=== PATIENT | female | born 1995 | race Caucasian/White ===

== ENCOUNTER 2016-10-23 09:40 | Inpatient (IN) | payer BC ==
[2016-10-23] MEDS ORDERED: LR 500 ML IV PRN (09:47)
--- NOTE | 2016-10-23 09:50 | HISTPHYS ---
- HISTORY OF PRESENT ILLNESS Age: 20 Estimated Due Date: 11/14/16 Gestational Age: 36 : 1 Para: 0 Patient Presents to:: Labor & Delivery Presents for:: Leaking Fluid Current : No Complications, GBS - - REVIEW OF SYSTEMS Reports/Denies: Denies: Complaints Pain: Reports: None - ALLERGIES Allergies Allergy/AdvReac Type Severity Reaction Status Date / Time cefdinir [From Omnicef] Allergy Rash-Genera Verified 04/03/13 07:42 lized Cephalosporins Allergy Rash-Genera Verified 04/03/13 07:42 lized - PAST MEDICAL HISTORY Reports: No Significant History - PAST SURGICAL HISTORY Reports: Cholecystectomy - PHYSICAL EXAM Vital Signs:: Temperature: () HR: () RR: () BP: () Pulse Ox: () GENERAL: Alert, Oriented, No Acute Distress HEENT: Normal CARDOVASCULAR/CHEST: Normal RESPIRATORY: Normal - CTA ABDOMEN: Gravid, Obese Fundal Height (cm): 38 GENITOURINARY: Normal. negative: Lesions MUSCULOSKELETAL: Normal EXTERMITIES: Moves All Extremeties. negative: Edema Dilation (cm): 1 Effacement (%): 90 Station: -2 Heart Rate: 145 Contractions: Absent Membranes: SROM Amniotic Fluid: Clear - ASSESSMENT (ACTIVE PROBLEMS) (1) with 36 to 37 weeks completed gestation Acute [id number] - (2) Active labor Acute [id number] - - PLAN Admit Other Plan: 20 yo G1 at 36.6 weeks presents to l and d with srom. Routine care without any complications. Will admit, augment with pitocin secondary to no contractions and ruptured. Plan of care discussed.
[2016-10-23] MEDS ORDERED: ONDANSETRON HCL 4 MG/2 ML VIAL IV ONE (10:00)
[2016-10-23] MEDS ORDERED: BUPIVACAINE 0.75%/DEXTROSE 8.25% AMPULE EPI ONE (10:00)
[2016-10-23] MEDS ORDERED: OXYTOCIN 1,000 ML IV SCH (10:00)
[2016-10-23 10:07] VITALS: BMI 40.4
[2016-10-23] MEDS ORDERED: LIDOCAINE 1% 30 ML VIAL (PRESERVATIVE FREE) ONE (10:15)
[2016-10-23 10:26] LABS: AUTOMATED BASOPHIL 0.7 % (0-2); AUTOMATED EOSINOPHIL 1.8 % (0-5); AUTOMATED LYMPH 21.3 % (17-44); AUTOMATED MONOCYTE 7.9 % (3-10); AUTOMATED NEUTROPHIL 68.3 % (45-76); MPV 7.7 fL (7.4-10.4)
[2016-10-23] MEDS: LR 1,000 ML IV SCH ×2 (10:45→18:17)
[2016-10-23] MEDS ORDERED: Vaccine Screening Complete SCH (11:00)
[2016-10-23] MEDS: BUTORPHANOL 1 MG/ML VIAL IV PRN ×4 (15:13→20:36)
--- NOTE | 2016-10-23 15:22 | OBGYNPROG ---
- Exam Vital Signs: Temperature: 97.9 F (10/23/16 09:53) HR: 109 (10/23/16 09:53) RR: 16 (10/23/16 09:53) BP: 138/76 (10/23/16 09:53) Pulse Ox: () Heart Rate: 122 Moderate Variability Contraction Pattern: Regular Dilation (cm): 1.5 Effacement (%): 90 Station: -3 Amniotic Fluid: Clear - Plan Continue Present Management
--- NOTE | 2016-10-23 20:33 | OBGYNPROG ---
- Exam Vital Signs: Temperature: 97.9 F (10/23/16 09:53) HR: 109 (10/23/16 09:53) RR: 16 (10/23/16 09:53) BP: 138/76 (10/23/16 09:53) Pulse Ox: () Heart Rate: 135 Moderate Variability Contraction Pattern: Regular Dilation (cm): 3 Effacement (%): 100 Station: -2 - Plan Continue Present Management Discussed with patient indications for section, discussed minimal change throughout the day, now with srom x 12 hours. Will follow closely. FHR reassuring, will continue pitocin.
[2016-10-23] MEDS ORDERED: LR 1,500 ML IV ONE (21:35)
--- NOTE | 2016-10-23 21:39 | OBGYNPROG ---
- Exam Vital Signs: Temperature: 97.9 F (10/23/16 09:53) HR: 109 (10/23/16 09:53) RR: 16 (10/23/16 09:53) BP: 138/76 (10/23/16 09:53) Pulse Ox: () Heart Rate: 134 Reactive Contraction Pattern: Regular Dilation (cm): 3 Effacement (%): 100 Station: -2 - Plan Discussed with patient no change, recommend proceeding with ltcs. Risks reviewed , anesthesia and peds notified.
[2016-10-23] MEDS ORDERED: FENTANYL 100 MCG/2 ML VIAL IV PRN ×2 (21:58)
[2016-10-23] MEDS ORDERED: hydrALAZINE 20 MG/ML VIAL IV PRN (21:58)
[2016-10-23] MEDS ORDERED: ONDANSETRON HCL 4 MG/2 ML VIAL IV PRN (21:58)
[2016-10-23] MEDS ORDERED: ONDANSETRON HCL 4 MG ODT TAB PO PRN (21:58)
[2016-10-23] MEDS ORDERED: HYDROmorphone 1 MG INJECTION IV PRN ×2 (21:58)
[2016-10-23] MEDS ORDERED: MEPERIDINE 25 MG/ML TUBEX IV PRN (21:58)
[2016-10-23] MEDS ORDERED: PROMETHAZINE 25 MG/ML VIAL IV PRN ×3 (21:58→23:23)
[2016-10-23] MEDS ORDERED: LABETALOL 20 MG/4 ML SYRINGE IV PRN (21:58)
[2016-10-23] MEDS ORDERED: LR 1,000 ML IV SCH ×2 (22:00)
[2016-10-23] MEDS ORDERED: GENTAMICIN 160 MG in NS 100 ML IV ONE (22:00)
[2016-10-23] MEDS ORDERED: Clindamycin 900 mg/D5W 50 ml 900 MG/50 ML IVB IV ONE (22:00)
--- NOTE | 2016-10-23 22:00 | HIM.ANES ---
Anesthesia Evaluation & Plan - Focused Review of Systems Cardiac History: No: Hx Cardiac Disorders HEENT: Yes: Hx Ear Problem (EUSTACHIAN TUBE DYSFUNCTION), Other HEENT Problems Hx Other HEENT Problems: TONSILLITIS; SINUSITIS; URI Respiratory: Yes: Hx Asthma Gastrointestinal: Yes: Hx Gastroesophageal Reflux Disease, Hx Gastrointestinal Disorders Neurological/Musculoskeletal: Yes: Hx Migraine, Hx Neurological Disorders Psychological: Yes Hx Depression (2011), Yes Hx Mental/Emotional Disorders HX Other Psyco/Soc Problems: OPPOSITIONAL DEFIANT DISORDER OF CHILDHOOD Blood/Autoimmune: No: Hx Blood Transfusions, Hx Anemia, Hx AIDS, Hx Sickle Cell Disease Smoking Status: Never smoker Past Social History: Denies: Alcohol Use Hx Stress Test (date): No Hx Echocardiogram (date): No Hx Chest Xray (date): No - Focused Physical Exam NPO since: 10/23/16 0530 Mallampati: Class III Thyromental Distance: Greater than 3 Cardiovascular/Chest: Normal Respiratory: Lungs clear Any problems with anesthesia, including nausea and vomiting?: No Any relatives with a history of Malignant Hyperthermia?: No Beta Fabiola given (if appropriate): No Other: Problem List Problem Status Onset Active labor Acute with 36 to 37 weeks completed gestation Acute CBC/BMP/Other 10/23/16 10:10 Allergies Allergy/AdvReac Type Severity Reaction Status Date / Time cefdinir [From Omnicef] Allergy Rash-Genera Verified 10/23/16 09:53 lized Cephalosporins Allergy Rash-Genera Verified 10/23/16 09:53 lized Home Medications Medication Instructions Recorded Last Taken Type Vits W-Ca,Fe,FA(<1Mg) 1 each PO DIR 10/23/16 10/22/16 10:00 History [] Height and Weight Patient's height 5 ft 1 in Patient's weight 232 lb BMI 40.4 Vital Signs Temperature 98.3 F 10/23/16 21:59 Pulse Rate 83 10/23/16 21:59 Respiratory Rate 20 10/23/16 21:59 Blood Pressure 136/85 10/23/16 21:59 Pulse Oxygen Saturation 95 10/23/16 21:59 - Anesthetic Plan Anesthesia Type: Spinal ASA Class: 3, E -: I have examined this patient and reviewed the medical record. The patient has been assessed prior to anesthesia. Risks and benefits of anesthesia and anesthetic technique options have been discussed and all questions answered. The patient accepts the risk and desires me to proceed with the planned anesthetic.
--- NOTE | 2016-10-23 22:00 | SC.ANESPOS ---
Post-Anesthesia Note LOC: [place] [facility] Calling Post-Anesthesia Assessment: Awake, Returned to Baseline, Hemodynamically Stable , Pain Control Adequate Phase I & II Recovery Complete: Yes Apparent Anesthesia Complication: No : N - Vital Signs Blood Pressure: 136/85 Pulse: 83 Resp Rate: 20 O2 Sat: 95 Temp: 98.3 F
[2016-10-23] MEDS ORDERED: LANOLIN OINTMENT 0.25 OZ TUBE TOP PRN (23:23)
[2016-10-23] MEDS ORDERED: ZOLPIDEM TARTRATE 5 MG TAB PO PRN (23:23)
[2016-10-23] MEDS ORDERED: OXYTOCIN 1,000 ML IV ONE (23:23)
[2016-10-23] MEDS ORDERED: HYDROmorphone 50 ML IV PRN (23:23)
[2016-10-23] MEDS ORDERED: OXYCODONE HCL 5 MG TABLET PO PRN (23:23)
[2016-10-23] MEDS ORDERED: SODIUM CHLORIDE 0.9% 3 ML FLUSH FLUSH PRN (23:23)
--- NOTE | 2016-10-23 23:25 | HIMOPRPT ---
DATE OF PROCEDURE: DATE OF PROCEDURE: 10/23/16 PREOPERATIVE DIAGNOSIS: 1. Intrauterine at 36.6 weeks 2. Failure to progress POSTOPERATIVE DIAGNOSIS: 1. Intrauterine at 36.6 weeks. 2. Failure to progress PROCEDURE: Primary low transverse via Pfannenstiel incision. SURGEON: Irlanda Nunez MD. ANESTHESIA: [spinal] FINDINGS: Vigorous [male] infant, [6] pounds [13] ounces with Apgars of [8] and [9]. COMPLICATIONS: None. ESTIMATED BLOOD LOSS: 400 mL. URINE OUTPUT: [150] mL of clear urine. PROCEDURE IN DETAIL: The patient was taken to the operating room where anesthesia was adequate at the time of skin check. At this time, a Pfannenstiel incision was made with scalpel carried down to the fascia. The fascia was nicked in midline and the incision extended laterally with Rosado scissors. The fascia was elevated up, dissected off rectus muscles. Rectus muscles were midline. Peritoneum was identified and entered. Peritoneal incision was extended superiorly and inferiorly with good visualization of bladder. Bladder flap was created with blunt and sharp dissection. The lower uterine segment was incised in transverse fashion with scalpel and extended bluntly. The 's head was delivered atraumatically. The nose and mouth were suctioned with bulb suction. Cord clamped and cut and infant handed off to awaiting tool die maker. Placenta was removed. The uterus was exteriorized and cleared of all clots. The uterine incision was closed with #1 chromic and second chromic was used for hemostasis. The uterus was returned to the abdomen and hemostasis was verified. Clots were removed from the gutters. The fascia was closed with 0 PDS. Subcuticular fat was irrigated with saline. Fat was reapproximated with 0 plain gut suture. Skin was closed with 4-0 monocryl in subcuticular fashion. Dermabond was applied to the skin site. Sponge, laps, and needle counts correct x2. The patient tolerated well.
--- NOTE | 2016-10-23 23:26 | OBDELNOTE ---
Delivery Note - Problem/Diagnosis (1) with 36 to 37 weeks completed gestation Status: Acute (2) Active labor Status: Acute (3) delivery delivered Status: Acute (4) Single live Status: Acute (5) Failure to progress in labor Status: Acute - Admitting Diagnosis Reason for Visit: Leaking Fluid Admission Date: 10/23/16 Admission time: 09:58 Gestational Age: 36 - Procedures Procedure(s): Non-Stress Test Labor Anesthesia/Analgesia: IV Medication, Spinal Anesthesia Date: 10/23/16 Delivery Presentation: Vertex Episiotomy: Midline Laceration: None : Primary, Non-Scheduled Reason: Failure to Progress Skin Incision: Pfannenstiel Uterine Incision: Low Transverse EBL: 400 Fluid: Clear Placenta: Manual Removal Description: Normal Cord: 3 Vessels - Infant Data Sex: Male Weight: 3.09 kg (1min): 8 (5min): 9 Feeding Plans for : Breast Plans Circumcision: No [place] Complications: No Complications [place] to:: LDRP/Mother's Room - /Operative Complications /Op Complications: None Discharge Planning - REASON FOR ADMISSION Patient Presents to:: Labor & Delivery Reason for Visit: Leaking Fluid - DISCHARGE INSTRUCTIONS
--- NOTE | 2016-10-23 23:27 | PCM.DCS92 ---
<Irlanda Nunez - Last Filed: 10/23/16 23:26> - Primary/Secondary Discharge Diagnoses (1) with 36 to 37 weeks completed gestation Acute [id number] - (2) Active labor Acute [id number] - (3) delivery delivered Acute O82 - ENCOUNTER FOR DELIVERY WITHOUT INDICATION (4) Single live Acute Z37.0 - SINGLE LIVE (5) Failure to progress in labor Acute O62.2 - OTHER UTERINE INERTIA - HOSPITAL COURSE /Op Complications: None - DISCHARGE INSTRUCTIONS Discharge Disposition: Home Discharge Condition: Good Cognitive Discharge Status: Unimpaired Fuctional Discharge Status: Independent Patient Leaving with Prescriptions?: Yes Home Medications/ New Prescriptions: New Ibuprofen Tablet [Motrin] 800 mg PO TID #30 tab Oxycodone Immediate Release [Oxycodone Immediate Release Tablet] 5 mg PO Q4H PRN #30 tab PRN Reason: Pain No Action Vits W-Ca,Fe,FA(<1Mg) [] 1 each PO DIR Referrals: Irlanda Nunez MD [Staff Physician] - 12/05/16 3:30 pm - DC Summary Notes Discharge Medications: *See "Discharge Medication List" for a complete list of Home Medications and Discharge Medications.* Obstetric Hospital Course - Admitting Diagnosis Reason for Visit: Leaking Fluid Admission Date: 10/23/16 Admission time: 09:58 Gestational Age: 36 - Procedures Procedure(s): Non-Stress Test Labor Anesthesia/Analgesia: IV Medication, Spinal Anesthesia Date: 10/23/16 Delivery Presentation: Vertex Episiotomy: Midline Laceration: None : Primary, Non-Scheduled Skin Incision: Pfannenstiel Uterine Incision: Low Transverse EBL: 400 Fluid: Clear Placenta: Manual Removal Description: Normal Cord: 3 Vessels - Infant Data Infant Sex: Male Weight: 3.09 kg (1min): 8 (5min): 9 Feeding Plans for Infant: Breast Plans Circumcision: No [place] Complications: No Complications to:: LDRP/Mother's Room - /Operative Complications /Op Complications: None <Tomy Shannon - Last Filed: 10/26/16 09:16> - Primary/Secondary Discharge Diagnoses (1) care following delivery Acute Z39.2 - ENCOUNTER FOR ROUTINE FOLLOW-UP - DC Summary Notes Discharge Medications: *See "Discharge Medication List" for a complete list of Home Medications and Discharge Medications.*
[2016-10-23] MEDS ORDERED: Pharmacy Order Set Alert SCH (23:45)
[2016-10-24] MEDS: IBUPROFEN 800 MG TAB PO SCH ×4 (00:54→17:52)
[2016-10-24] MEDS ORDERED: SODIUM CHLORIDE 0.9% 3 ML FLUSH FLUSH SCH (06:00)
[2016-10-24] MEDS ORDERED: LR 1,000 ML IV SCH (06:21)
--- NOTE | 2016-10-24 07:56 | OBGYNPROG ---
- Subjective Post Day: 1 Post Op Day: 1 Reports: Tolerating Liquid Diet, Light Bleeding, Well. Denies: Complaints, Nausea, Vomitting, Chest Pain, Shortness of Breath Pain: Reports: Well Managed, Incision Patient has not yet had regular diet. [place] out but no void yet. - Objective Vital Signs: Last Vital Signs Temp 98.2 F 10/24/16 06:33 Pulse 71 10/24/16 06:33 Resp 18 10/24/16 06:33 BP 120/61 10/24/16 06:33 Pulse Ox 98 10/23/16 23:47 General: Alert, Oriented, No Acute Distress Cardiovascular/Chest: Normal Respiratory: Normal - CTA ABDOMEN: Bowel Sounds Present, Non-Distended, Soft, Tender (mild) Abdominal Incision: Dermabond Intact. negative: Redness, Drainage, Ecchymotic Fundus: At Umbilicus, Firm OBGYN Progress Note Progress Note: Laboratory Results - last 24 hr 10/23/16 10/23/16 10/23/16 10:10 10:10 10:10 WBC 10.1 RBC 4.26 Hgb 12.1 Hct 36.0 MCV 85 MCH 28.5 MCHC 33.6 RDW 13.6 Plt Count 334 MPV 7.7 Neut % (Auto) 68.3 Lymph % (Auto) 21.3 Story % (Auto) 7.9 Eos % (Auto) 1.8 Baso % (Auto) 0.7 Absolute Neuts (auto) 6.87 Absolute Lymphs (auto) 2.12 RPR Nonreactive Blood Type A POSITIVE Antibody Screen Negative 10/23/16 10/24/16 21:37 06:41 WBC RBC Hgb 10.0 L D Hct 30.0 L MCV MCH MCHC RDW Plt Count MPV Neut % (Auto) Lymph % (Auto) Story % (Auto) Eos % (Auto) Baso % (Auto) Absolute Neuts (auto) Absolute Lymphs (auto) RPR Blood Type Cancelled Antibody Screen Cancelled - ASSESSMENT (1) care following delivery Status: Acute Code(s): Z39.2 - ENCOUNTER FOR ROUTINE FOLLOW-UP - PLAN Routine Care, Advance Diet, Ambulate, Out of Bed, Discontinue BOX COVERER HAND, Start PO Meds, Supportive Care
[2016-10-24] MEDS ORDERED: FLU VACCINE (Afluria) 0.5 ML DOSE IM ONE (08:00)
[2016-10-24] MEDS ORDERED: PNEUMOCOCCAL 0.5 ML VIAL IM ONE (08:00)
[2016-10-24] MEDS ORDERED: MEASLES,MUMPS,RUBELLA VACCINE SQ ONE (08:00)
[2016-10-24] MEDS: DOCUSATE-SENNA CONCENTRATE TAB PO SCH (09:00)
[2016-10-24] MEDS: OXYCODONE HCL 5 MG TABLET PO PRN (13:57)
[2016-10-25] MEDS: DOCUSATE-SENNA CONCENTRATE TAB PO SCH ×3 (00:16→21:04)
[2016-10-25] MEDS: IBUPROFEN 800 MG TAB PO SCH ×4 (00:16→21:04)
--- NOTE | 2016-10-25 07:34 | OBGYNPROG ---
- Subjective Post Day: 2 Post Op Day: 2 Reports: Ambulating, Out of Bed, Tolerating Regular Diet, Voiding Freely, Passing Flatus, Moderate Lochia. Denies: Dizziness, Headache, Blurred Vision, Nausea, Vomitting, Jitteriness, Palpitations, Chest Pain, Shortness of Breath Pain: Reports: Well Managed, Incision - Objective Vital Signs: Vital Signs - 24 hr 10/24/16 10/24/16 10/24/16 08:00 09:39 14:06 Temperature 98.3 F 97.8 F Pulse Rate 80 84 Respiratory 20 20 18 Rate Blood Pressure 106/57 L 111/66 10/24/16 10/24/16 10/25/16 17:49 21:50 06:38 Temperature 97.5 F 98.5 F 97.8 F Pulse Rate 90 88 88 Respiratory 20 18 18 Rate Blood Pressure 121/73 119/55 L 119/69 General: Alert, Oriented, No Acute Distress Cardiovascular/Chest: Normal Respiratory: Normal - CTA ABDOMEN: Non-Tender, Soft Abdominal Incision: Dermabond Intact, Incision Clean/Dry/Intact Fundus: Firm. Denies: Tender EXTERMITIES: Moves All Extremeties YUMI'S SIGN: Denies: Bilateral OBGYN Progress Note - ASSESSMENT (1) care following delivery Status: Acute Code(s): Z39.2 - ENCOUNTER FOR ROUTINE FOLLOW-UP - PLAN Routine Care, Discharge (instructions given), Supportive Care
[2016-10-25] MEDS: OXYCODONE HCL 5 MG TABLET PO PRN ×2 (14:06→21:04)
[2016-10-26] MEDS: IBUPROFEN 800 MG TAB PO SCH ×2 (03:21→08:48)
[2016-10-26 06:59] VITALS: BP 136/85; PULSE 83; TEMP 98.3
[2016-10-26] MEDS: DOCUSATE-SENNA CONCENTRATE TAB PO SCH (08:48)
--- NOTE | 2016-10-26 09:16 | OBGYNPROG ---
- Subjective Post Day: 3 Reports: Ambulating, Out of Bed, Tolerating Regular Diet, Voiding Freely, Passing Flatus. Denies: Complaints Pain: Reports: Well Managed, Incision - Objective Vital Signs: Last Vital Signs Temp 98.3 F 10/26/16 06:59 Pulse 83 10/26/16 06:59 Resp 20 10/26/16 06:59 BP 136/85 10/26/16 06:59 Pulse Ox 95 10/26/16 06:59 General: Alert, Oriented, No Acute Distress HEENT: Normal Cardiovascular/Chest: Normal Respiratory: Normal - CTA ABDOMEN: Non-Distended, Non-Tender, Obese, Soft Abdominal Incision: Edges Approximated, Dermabond Intact, Incision Clean/Dry/ Intact. negative: Redness, Drainage, Ecchymotic MUSCULOSKELETAL: Normal EXTERMITIES: Moves All Extremeties YUMI'S SIGN: Denies: Bilateral OBGYN Progress Note - ASSESSMENT (1) care following delivery Status: Acute Code(s): Z39.2 - ENCOUNTER FOR ROUTINE FOLLOW-UP - PLAN Discharge
[2016-10-26] MEDS ORDERED: VARICELLA VIRUS VACCINE VIAL SQ ONE (12:30)
== END 2016-10-26 13:35 | disposition home or self-care (01) | DRG 766 ==
LOC: MASU 09:40
PROVIDERS: ADMIT Obstetrics & Gynecology; ATTEND Obstetrics & Gynecology
PROC: 10D00Z1 Extraction of Products of Conception, Low, Open Approach (ICD-10-PCS; principal; 2016-10-23 22:35)
DX: O62.2 Other uterine inertia (principal); Z23 Encounter for immunization; Z37.0 Single live birth; Z3A.36 36 weeks gestation of pregnancy
CPT/HCPCS: 81002; 83986; 85014; 85018; 85025; 86592; 86850; 86900; 86901; 90471; 90716; 96361; 96365; 96366; 96368; 96375; 96376; J0595; J1170; J1580; J2001; J2405; J2590; J3490; J7030; S0020; S0077